=== PATIENT | male | born 1975 | race Two or more races ===

== ENCOUNTER 2020-05-09 11:36 | Emergency (ER) | payer BC ==
[~2020-05-09] VITALS: Ht 165.1 cm; Wt 88.5 kg
--- NOTE | 2020-05-09 12:28 | NUR ---
Clean catch urine obtained- sent to lab Piv placed from which labs were drawn then 1l ns administered
--- NOTE | 2020-05-09 12:29 | NUR ---
THIS IS A 44 YEAR OLD MALE WHO C/O INCREASE URINATION, EXCESSIVE THIRST, BLURRY VISION, ESPINO, FSBS 275 TODAY AT 1100, NO DX FOR DM YET- APPT NEXT WK, SXS FOR OVER A MONTH
[2020-05-09] MEDS ORDERED: INSULIN REGULAR 100 UNITS/ML, 3ML VIAL IV ONE (12:30)
[2020-05-09] MEDS ORDERED: INSULIN SINGLE DOSE, ER ONE (12:39)
[2020-05-09] MEDS ORDERED: SODIUM CHLORIDE 0.9% 1,000ML IVBOLUS ONE (13:00)
[2020-05-09 13:08] LABS: PH, VENOUS 7.377 pH (7.320-7.420)
[2020-05-09 13:21] LABS: BASOPHILS % (AUTO) 0 % (0-1); EOSINOPHILS % (AUTO) 1 % (1-7); LYMPHOCYTES % (AUTO) 28 % (22-44); MEAN CORPUSCULAR HGB CONC 33.8 g/dL (33.2-36.2); MEAN PLATELET VOLUME 11.2 fL (7.4-10.4); MONOCYTES % (AUTO) 7 % (2-9); NEUTROPHILS % (AUTO) 63 % (42-75); PLATELET COUNT 190 x10^3/uL (130-400); RED BLOOD COUNT 5.93 x10^6/uL (4.38-5.82)
[2020-05-09 13:24] LABS: ALBUMIN 3.8 g/dL (3.4-5.0); ANION GAP 9 mmol/L (5-15); CALCIUM 8.9 mg/dL (8.5-10.1); CHLORIDE 102 mmol/L (98-107)
[2020-05-09 13:29] LABS: ALANINE AMINOTRANSFERASE 49 U/L (12-78); ALKALINE PHOSPHATASE 106 U/L (45-117); BILIRUBIN,TOTAL 0.5 mg/dL (0.2-1.0); CREATININE 0.94 mg/dL (0.7-1.3); TOTAL PROTEIN 7.9 g/dL (6.4-8.2)
[2020-05-09] MEDS ORDERED: ACETAMINOPHEN 325 MG TABLET ONE (13:36)
[2020-05-09] MEDS ORDERED: ACETAMINOPHEN 325 MG SUPP ONE (13:36)
--- NOTE | 2020-05-09 13:43 | NUR ---
PT C/O OF ESPINO, RECEIVED ORDER FOR TYLENOL PO, MEDICATED PER ORDER
[2020-05-09 13:46] LABS: MD NO
[2020-05-09 13:50] LABS: ACETONE, SERUM Small (20mg/dL) (Negative)
--- NOTE | 2020-05-09 13:57 | NUR ---
ASSUMED CARE OF PATIENT. NO ACUTE DISTRESS NOTED. FAMILY AT BEDSIDE. CALL LIGHT IN PLACE. WILL CONTINUE TO MONITOR.
[2020-05-09] MEDS ORDERED: ACETAMINOPHEN 325 MG TABLET PO ONE (14:00)
[2020-05-09 15:02] VITALS: BP 123/82
== END 2020-05-09 15:04 | disposition home or self-care (01) ==
LOC: ED 13:26
DX: E11.65 Type 2 diabetes mellitus with hyperglycemia (principal); H53.8 Other visual disturbances; R51.9 Headache, unspecified
CPT/HCPCS: 36415; 80053; 82010; 82803; 82962; 83036; 83930; 85025; 96374; 99283; J1815; J7030